=== PATIENT | female | born 1980 | race Caucasian/White ===

== ENCOUNTER 2017-01-03 00:09 | Emergency (ER) | payer OTHER, MEDICAID ==
[2017-01-03 00:18] VITALS: BP 98/43; PULSE 83; RESP 18; TEMP 98.8; O2SAT 96
--- NOTE | 2017-01-03 00:56 | EDPHY ---
H & P Stated Complaint: c/o R lower and L upper tooth pain, pt says they are broken Time Seen by Provider: 01/03/17 00:50 HPI/ROS: CHIEF COMPLAINT: Dental pain HISTORY OF PRESENT ILLNESS: The patient is a 36-year-old female who comes to the emergency department complaining of dental pain at tooth number 31. She has chronic caries and fractures in that tooth. She has seen 2 dentists and has finished a course of azithromycin. She has an appoint with oral surgery on to have this tooth removed. She states the pain is too bad she cannot sleep. She states that they told her only to take ibuprofen and Tylenol which she has been doing although not very regularly today. She also has a history of opiate abuse. Her dad is here with her. They are asking for pain medication. REVIEW OF SYSTEMS: Constitutional: denies: chills, fever, recent illness, recent injury EENTM: denies: blurred vision, double vision, nose congestion Respiratory: denies: cough, shortness of breath Cardiac: denies: chest pain, irregular heart rate, lightheadedness, palpitations Gastrointestinal/Abdominal: denies: abdominal pain, diarrhea, nausea, vomiting, blood streaked stools Genitourinary: denies: dysuria, frequency, hematuria, pain Musculoskeletal: denies: joint pain, muscle pain Skin: denies: lesions, rash, jaundice, bruising Neurological: denies: headache, numbness, paresthesia, tingling, dizziness, weakness Hematologic/Lymphatic: denies: blood clots, easy bleeding, easy bruising Immunologic/allergic: denies: HIV/AIDS, transplant EXAM: GENERAL: Well-appearing, well-nourished and in no acute distress. HEAD: Atraumatic, normocephalic. EYES: Pupils equal round and reactive to light, extraocular movements intact, sclera anicteric, conjunctiva are normal. ENT: See diagram, TMs normal, nares patent, oropharynx clear without exudates. Moist mucous membranes. NECK: Normal range of motion, supple without lymphadenopathy or JVD. LUNGS: Breath sounds clear to auscultation bilaterally and equal. No wheezes rales or rhonchi. HEART: Regular rate and rhythm without murmurs, rubs or gallops. ABDOMEN: Soft, nontender, normoactive bowel sounds. No guarding, no rebound. No masses appreciated. BACK: No CVA tenderness, no spinal tenderness, step-offs or deformities EXTREMITIES: Normal range of motion, no pitting or edema. No clubbing or cyanosis. NEUROLOGICAL: Cranial nerves II through XII grossly intact. Normal speech, normal gait. 5/5 strength, normal movement in all extremities, normal sensation PSYCH: Normal mood, normal affect. SKIN: Warm, dry, normal turgor, no visible rashes or lesions. Source: Patient Exam Limitations: No limitations - Medical/Surgical History Hx Asthma: No Hx Chronic Respiratory Disease: No Hx Diabetes: No Hx Cardiac Disease: No Hx Renal Disease: No Hx Cirrhosis: No Hx Alcoholism: No Hx HIV/AIDS: No Hx Splenectomy or Spleen Trauma: No Other PMH: multiple sclerosis, sz, depression/anxiety, cholecystectomy, orif RLE - Social History Smoking Status: Current every day smoker Alcohol Use: Sober Drug Use: None Constitutional: Initial Vital Signs Temperature (C) 37.1 C 01/03/17 00:13 Heart Rate 83 01/03/17 00:13 Respiratory Rate 18 01/03/17 00:13 Blood Pressure 98/43 L 01/03/17 00:13 O2 Sat (%) 96 01/03/17 00:13 O2 Delivery Mode Room Air Allergies/Adverse Reactions: No Known Allergies Allergy (Unverified 01/03/17 00:19) Home Medications: Medication Instructions Recorded Baclofen 01/03/17 Depakote 01/03/17 GABAPENTIN 01/03/17 Hydrocodone-Ibuprofen 7.5-200 01/03/17 LORazepam [Ativan 1 mg (RX)] 1 mg PO Q6-8PRN PRN #10 tab 01/03/17 Lodine 01/03/17 Provigil 01/03/17 Ropinirole ER 01/03/17 ED Images - Head Mouth: 1 - Severe dental erosion and caries, no fluctuance or visible abscess. Mild tenderness to percussion Medical Decision Making ED Course/Re-evaluation: The patient has very poor dentition with chronic caries and fractures. She and her father are here asking for narcotics. I told them that we have a policy gets prescribing narcotics. I did offer them anti-inflammatories and as well as Ativan and Ultram. They were angry and declined. We discussed the reasons for not prescribing narcotics including the fact that she is recovering opiate addict. They continue to be dissatisfied but did agree to try Ativan to at least help with sleeping. Differential Diagnosis: Partial list of the Differential diagnosis considered include but were not limited to; dental caries, dental fractures, opiate addiction, chronic pain and although unlikely based on the history and physical exam, I also considered abscess, infection, trauma. - Data Points Medications Given: Discontinued Medications Lorazepam (Ativan 1 Mg Prepack#4) 1 btl TAKEHOME EDNOW ONE Stop: 01/03/17 01:00 Last Admin: 01/03/17 00:59 Dose: 1 btl Departure - Departure Disposition: Home, Routine, Self-Care Clinical Impression: Chronic dental pain Condition: Fair Instructions: Lorazepam (By mouth), Dental Caries (ED) Referrals: NONE *PRIMARY CARE P,. [Primary Care Provider] - As per Instructions Prescriptions: LORazepam [Ativan 1 mg (RX)] 1 mg PO Q6-8PRN PRN #10 tab PRN Reason: *Anxiety/Agitation/Insomnia
[2017-01-03] MEDS ORDERED: LORAZEPAM 1 MG PREPACK#4 BTL TAKEHOME ONE (00:59)
== END 2017-01-03 01:00 | disposition home or self-care (01) ==
DX: K08.89 Other specified disorders of teeth and supporting structures (principal); G89.29 Other chronic pain; F17.200 Nicotine dependence, unspecified, uncomplicated